=== PATIENT | female | born 1985 | race Two or more races ===

== ENCOUNTER 2018-05-28 03:52 | Emergency (ER) | payer SELFPAY ==
[~2018-05-28] VITALS: Ht 175.3 cm; Wt 62.0 kg
[2018-05-28] MEDS ORDERED: HYDROCODONE/ACETAMINOPHEN 5/325MG TABLET PO ONE (04:15)
[2018-05-28] MEDS ORDERED: TETANUS, DIPHTHERIA, PERTUSSIS VAC/PF 0.5ML (>7YR OLD) IM ONE (04:15)
[2018-05-28] MEDS ORDERED: LIDOCAINE HCL 1% 20ML VIAL (Pyxis) INJ INFIL ONE (04:15)
[2018-05-28] MEDS ORDERED: LIDOCAINE HCL/PF 1% 10 MG/ML 5ML VIAL IJ NR (05:15)
[2018-05-28 08:13] VITALS: BP 119/78
== END 2018-05-28 08:16 | disposition home or self-care (01) ==
LOC: ER 03:52
DX: S01.112A Laceration without foreign body of left eyelid and periocular area, initial encounter (principal); S09.8XXA Other specified injuries of head, initial encounter; Y08.89XA Assault by other specified means, initial encounter; Y93.9 Activity, unspecified; Y92.9 Unspecified place or not applicable; Z88.6 Allergy status to analgesic agent
CPT/HCPCS: 12011; 70450; 70486; 81025; 90471; 90715; 99284; J3490; Z7610